=== PATIENT | female | born 1945 | race Caucasian/White ===

== ENCOUNTER 2018-03-01 08:23 | Outpatient (CLI) | payer OTHER, MEDICARE ==
[~2018-03-01] VITALS: Ht 162.6 cm; Wt 90.9 kg
--- NOTE | ~2018-03-01 | HEMODYNAMI ---
PATIENT:GAL ALVARADO MEDICAL RECORD: [id number] : 49 LOCATION:[facility] ADMISSION DATE: 03/01/18 Generatedon:03/01/201810:00 Patient name: GAL ALVARADO Patient #: [id number] SSN: DO B: 1945 Date of study: 03/01/2018 Page: Of Hemodynamic Procedure Report Patient Data Patient Demographics Procedure consent was obtained First Name: GAL Gender: Female Last Name: JENNY : 1945 Middle Initial: A Age: 72 year(s) Patient #: [id number] Race: Unknown Additional ID: [id number] Contact details Address: [address] [place] [address] ROAD State: [place] City: [place] Zip code: [address] Past Medical History Allergies: No known allergies Admission Admission Data Admission Date: 03/01/2018 Admission Time: 8:23 Admit Source: Other Procedure Procedure Types Cath Procedure Diagnostic Procedure LHC LHC w/Coronaries Procedure Description Procedure Date Procedure Date: 03/01/2018 Procedure Start Time: 9:51 Procedure End Time: 9:58 Procedure Staff Name Function Giovany Tariq MD Performing Physician Honorio Vincent RT Scrub Gio Montilla RN Nurse Maya Gambino RT Monitor Procedure Data Cath Procedure Fluoroscopy Diagnostic fluoroscopy Total fluoroscopy Time: 116 time: 116 min min Diagnostic fluoroscopy Total fluoroscopy dose: 1.2 dose: 1.2 mGy mGy Contrast Material Contrast Material Type Amount (ml) Isovue 300 40 Entry Location Entry Primary Successful Side Size Upsize Upsize Entry Closure Succes sful Closure Location (Fr) 1 (Fr) 2 (Fr) Remarks Device Remarks Radial Right 6 Fr Exoseal artery Short Estimated blood loss: 10 ml Diagnostic catheters Device Type Used For End Catheter Placement DIAGNOSTIC [place] 110cm 5 Procedure Fr catheter ([id number]) Procedure Complications No complications Procedure Medications Medication Administration Route Dosage Oxygen etCO2 Nasal cannula 2 l/min Heparin Flush Bag added to field 2 bags (1000units/500ml NS) 0.9% NaCl I.V. 100 ml/hr Radial Cocktail added to field 1 syringe (Verapomil 2mg/Nitro 400mcg/Heparin 1500units) Fentanyl I.V. 50 mcg Versed I.V. 1 mg Fentanyl I.V. 50 mcg Versed I.V. 1 mg Radial Cocktail I.A. 1 syringe (Verapomil 2mg/Nitro 400mcg/Heparin 1500units) Hemodynamics Rest Heart Rate: 54 (bpm) Pre Cath Intra NCS Post Cath Vital Signs Time Heart Resp SPO2 etCO2 NIBP (mmHg) Rhythm Pain Sedation Rate (ipm) (%) (mmHg) Status Level (bpm) 9:33:49 54 17 96 0 177/82(126) NSR 0 (11) 10(A) , No pain 9:39:12 58 17 97 36.8 179/80(106) NSR 0 (11) 10(A) , No pain 9:43:49 63 16 94 42.8 146/75(102) NSR 0 (11) 10(A) , No pain 9:48:15 61 16 93 41.3 143/75(101) NSR 0 (11) 10(A) , No pain 9:52:23 71 16 95 39.1 127/97(108) NSR 0 (11) 9(A) , No pain 9:56:39 69 16 96 34.5 126/65(89) NSR 0 (11) 9(A) , No pain Medications Time Medication Route Dose Verified Delivered Reason Notes Effectiveness by by 9:36:17 Oxygen etCO2 2 l/min Giovany Powers Per Nasal Chandni Montilla RN physician cannula 9:36:28 Heparin Flush added 2 bags Giovany Powers used for Bag to Chandni Montilla RN procedure (1000units/500ml field NS) 9:36:38 0.9% NaCl I.V. 100 Giovany Powers Per ml/hr Chandni Montilla RN physician 9:36:46 Radial Cocktail added 1 Giovany Powers used for (Verapomil to syringe Chandni Montilla RN procedure 2mg/Nitro field 400mcg/Heparin 1500units) 9:49:22 Fentanyl I.V. 50 mcg Giovany Powers for sedation Chandni Montilla RN 9:49:28 Versed I.V. 1 mg Giovany Powers for sedation Chandni Montilla RN 9:51:46 Fentanyl I.V. 50 mcg Giovany Powers for sedation Chandni Montilla RN 9:51:49 Versed I.V. 1 mg Giovany Powers for sedation Chandni Montilla RN 9:52:41 Radial Cocktail I.A. 1 Giovany Adiar for (Verapomil syringe Chandni Tariq MD vasodilation 2mg/Nitro 400mcg/Heparin 1500units) Procedure Log Time Note 9:02:16 Informed consent obtained and on chart 9:02:21 Admit Source: Other 9:02:53 Diagnostic Cath status Elective 9:02:54 Time tracking: Regular hours (M-F 7:00 - 5:00) 9:02:58 Plan of Care:Hemodynamics will remain stable., Cardiac rhythm will remain stable., Comfort level will be maintained., Respiratory function will remain adequate., Patient/ family verbilizes understanding of procedure., Procedure tolerated without complication., Recovers from procedure without complications.. 9:03:12 H&P Date Dictated: 02/07/2018 Within 30 days and on chart., H&P Addendum completed by physician on day of procedure. (MUST COMPLETE FOR ALL OUTPATIENTS). 9:10:29 Gio Montilla RN sent for patient. Start room use. 9:21:23 Patient received from Pre/Post Procedure Room to CCL 3 Alert and oriented. Tansferred to table in Supine position. 9:21:24 Warm blankets applied, and armani hugger turned on for patient comfort. 9:21:24 Correct patient and procedure confirmed by team. 9:21:25 ECG and BP/O2 sat monitors applied to patient. 9:21:26 Pre-procedure instructions explained to patient. 9:21:26 Pre-op teaching completed and patient verbalized understanding. 9:21:28 Family in waiting room. 9:27:02 Patient NPO since Midnight. 9:27:07 Patient allergic to No known allergies 9:27:11 Is the patient allergic to Iodine/contrast media? No. 9:28:34 Was the patient premedicated? Yes 9:28:43 Is patient on blood thinner?No 9:28:45 Patient diabetic? No. 9:28:53 Snore? Yes 9:28:54 Sleep apnea? No 9:28:58 Airway obstruction? No ? 9:29:05 Dentures? No out 9:29:09 Patient pain scale 0/10 ?. 9:29:20 IV patent on arrival in left forearm with 0.9% NaCl at [facility]. 9:31:31 Vital chart was started 9:36:17 Oxygen 2 l/min etCO2 Nasal cannula was administered by Gio Montilla RN; Per physician; 9:36:28 Heparin Flush Bag (1000units/500ml NS) 2 bags added to field was administered by Gio Montilla RN; used for procedure; 9:36:38 0.9% NaCl 100 ml/hr I.V. was administered by Gio Montilla RN; Per physician; 9:36:46 Radial Cocktail (Verapomil 2mg/Nitro 400mcg/Heparin 1500units) 1 syringe added to field was administered by Gio Montilla RN; used for procedure; 9:38:35 Lab results completed and on chart. 9:38:40 Right Radial & Right Groin area was prepped with chlora-prep and draped in sterile fashion 9:38:41 Alarms reviewed by R. N. 9:38:42 Sharps counted by scrub and verified by R.N. 9:45:34 Physician paged 9:45:35 Physician arrived 9:45:36 --------ALL STOP TIME OUT------ 9:45:36 Final Timeout: patient, procedure, and site verified with staff and physician. All members of the team are in agreement. 9:45:39 Right Radial & Right Groin site verified by team. 9:45:42 Physical assessment completed. ASA score P 2 - A patient with mild systemic disease as per Giovany Tariq MD. 9:45:47 Sedation plan: IV Moderate Sedation Medication:Versed, Fentanyl 9:49:22 Fentanyl 50 mcg I.V. was administered by Gio Montilla RN; for sedation; 9:49:28 Versed 1 mg I.V. was administered by Gio Montilla RN; for sedation; 9:49:53 Use device set Radial Dx or PCI 9:49:56 ACIST Syringe (87312) opened to sterile field. 9:49:56 Medline Cath Pack ([id number]) opened to sterile field. 9:49:57 Bag Decanter (2001S) opened to sterile field. 9:49:57 DIAGNOSTIC WIRE .035 260cm J wire (964422) opened to sterile field. 9:49:58 ACIST Hand Control (89983) opened to sterile field. 9:49:59 ACIST Manifold (90455) opened to sterile field. 9:50:00 Tegaderm 4 x 4 (1626W) opened to sterile field. 9:50:02 MBrace Wrist Support ([id number]) opened to sterile field. 9:50:03 NEEDLE Cook 21G 4cm Radial (O36179) opened to sterile field. 9:50:08 SHEATH 6Fr Prelude Radial ([id number]) opened to sterile field. 9:50:17 Procedure started. 9:50:17 Full Disclosure recording started 9:50:59 A DIAGNOSTIC [place] 110cm 5 Fr catheter (072594) was advanced over the wire and used for Procedure. 9:51:46 Fentanyl 50 mcg I.V. was administered by Gio Montilla RN; for sedation; 9:51:49 Versed 1 mg I.V. was administered by Gio Montilla RN; for sedation; 9:51:51 Local anesthetic to right radial artery with Lidocaine 2% by Giovany Tariq MD.INITIAL ACCESS ONLY 9:52:13 A 6 Fr Short sheath was inserted into the Right Radial artery 9:52:36 EF : 60 % 9:52:41 Radial Cocktail (Verapomil 2mg/Nitro 400mcg/Heparin 1500units) 1 syringe I.A. was administered by Giovany Tariq MD; for vasodilation; 9:52:48 RCA angiography performed. 9:53:06 Catheter removed. 9:54:01 GUIDE 6FR XBLAD 3.5 catheter ([id number]) opened to sterile field. 9:54:07 LCA angiography performed. 9:54:46 TR BAND Standard ([id number]) opened to sterile field. 9:54:51 Catheter removed. 9:55:08 Sheath removed intact; hemostasis achieved with Exoseal to the Right Radial artery. 9:55:11 Procedure ended.(Physican Out) 9:55:25 Fluoroscopy time 116.00 minutes. 9:55:55 Fluoroscopy dose: 1.2 mGy 9:55:55 Flurop Dose total: 1.2 9:56:16 Contrast amount:Isovue 300 40ml. 9:56:18 Sharps counted by scrub and verified by R.N. 9:56:26 TR band inflated with 10cc of air. 9:56:33 Insertion/operative site no bleeding no hematoma. 9:56:45 Post right radial artery:stable 9:56:48 Post Procedure Pulses reassessed and unchanged 9:57:01 Post-procedure physical assessment completed. ASA score P 2 - A patient with mild systemic disease as per iGovany Tariq MD. 9:57:05 Post procedure rhythm: unchanged. 9:57:08 Estimated blood loss: 10 ml 9:57:10 Post procedure instruction explained to patient.Patient verbalizes understanding. 9:57:26 Procedure and supply charges have been captured, reviewed, submitted and are correct. 9:57:53 Procedure Complication : No complications 9:57:55 Vital chart was stopped 9:57:56 See physician's report for complete and final results. 9:57:58 Report given to Pre/Post Procedure Room. 9:58:02 Patient transfered to Pre/Post Procedure Room with Stretcher. 9:58:04 Procedure ended. 9:58:04 Full Disclosure recording stopped 9:58:07 End room use (Document Last) Device Usage Item Name Manufacture Quantity Catalog Number Hospital Part Current M inimal Lot# / Charge Number Stock Stock Serial# Code ACIST Syringe Acist 1 45274 [id number] 150770 428095 2 0 (22204) [employer] Medline Cath Cardinal 1 [id number] 447042 09503 203459 5 [facility] ([id number]) Bag Decanter Microtek 1 276843 03446 951061 5 () [employer] Inc. DIAGNOSTIC WIRE [place] 1 236539 557783 969741 625468 3 0 .035 260cm J wire (374340) ACIST Hand Acist 1 45822 107692 945516 651665 5 Control (80546) [employer] ACIST Manifold Acist 1 57099 770599 603458 325530 5 (94064) [employer] Inc Tegaderm 4 x 4 3M 1 1626W 434300 824641 569893 5 (1626W) MBrace Wrist Advanced 1 140-0250-00 562347 69612 036053 5 Support Vascular ([id number]) Dynamics NEEDLE Cook 21G Cook Medical 1 [id number] 339260 978716 445752 5 4cm Radial (X60133) SHEATH 6Fr Merit 1 [id number] 299342 589680 229151 5 Prelude Radial Medical ([id number]) DIAGNOSTIC Terumo 1 11-0352 736120 075360 689733 5 [place] 110cm 5 Fr catheter (158936) GUIDE 6FR XBLAD Cardinal 1 [id number] 591262 939950 567388 1 0 3.5 catheter Health (49933406) TR BAND Terumo 1 [id number] 525185 202932 225804 4 0 Standard ([id number]) Signature Audit [place] Stage Time Signature Unsigned Intra-Procedure 03/01/2018 Maya Gambino 10:00:17 AM RT(R) Signatures Monitor : Maya Gambino Signature : RT Date : Time : [place] [id number] [facility] [address]
--- NOTE | ~2018-03-01 | OP ---
PATIENT NAME: GAL ALVARADO MEDICAL RECORD: [id number] :49 LOCATION:[facility] ADMISSION DATE: SURGEON: RUSLAN KAISER MD DATE OF OPERATION: 03/01/2018 PROCEDURES: 1. Left heart catheterization. 2. Selective coronary angiography. 3. Left ventriculogram. DESCRIPTION OF PROCEDURE: After informed consent was obtained and after detailed explanation of risks, benefits as well as alternative therapies, the patient elected proceeded with angiogram and angioplasty. The right radial area was prepped and draped in normal sterile fashion. Right radial artery was cannulated via modified Seldinger technique with placement of 6-[place] sheath. All catheters exchanged through this sheath. FINDINGS: The left ventriculogram was performed in standard 30-degree BOWERS view, reveals good cardiac wall motion throughout all segments. Overall ejection fraction estimated 60%. SELECTIVE CORONARY ANGIOGRAPHY: Left main, left anterior descending, left circumflex, and right coronary artery are all smooth-walled vessels with no angiographic evidence of coronary artery disease. OVERALL IMPRESSION: 1. No angiographic evidence of coronary artery disease. 2. Normal left heart pressures. 3. Normal left ventricular systolic function. Chest pain is noncardiac in etiology. No further cardiac workup needs to be ascertained. TRANSINT:[id number] Voice Confirmation ID: [id number] DOCUMENT ID: [id number] RUSLAN KAISER MD at 1752 CC: [id number] DICTATION DATE: 03/01/18 1002 RAPID TRANSIT OPERATOR: 03/01/18 1134 DEP CLI 03/01/18 [place] [id number] [place] [address]
[2018-03-01] MEDS ORDERED: ZOLOFT100 MG PO (08:42)
[2018-03-01] MEDS ORDERED: ULTRAM50 MG PO (08:43)
[2018-03-01] MEDS ORDERED: TEMAZEPAM30 MG PO (08:43)
[2018-03-01] MEDS ORDERED: TRAZODONE HCL150 MG PO (08:44)
[2018-03-01 08:50] VITALS: BP 150/64; Ht 162.6 cm; Wt 90.9 kg
[2018-03-01 09:11] LABS: BASOPHILS 0.4 % (0-2); EOSINOPHILS 1.5 % (0-7); HEMATOCRIT 43.8 % (36.0-48.0); HEMOGLOBIN 14.1 g/dL (12-16); IMMATURE GRANULOCYTES 0.4 % (0-5); LYMPHOCYTES 27.5 % (15-50); MCH 26.9 pg (26.0-34.0); MCHC 32.2 g/dL (31.0-37.0); MCV 83.4 fL (80.0-100.0); MEAN PLATELET VOLUME 12.6 fL (7.4-10.4); MONOCYTES 9.2 % (2-11); PLATELET COUNT 200 10x3/uL (130-400); RBC 5.25 10x6/uL (4.00-5.40); RDW 16.1 % (11.5-14.5); WBC 7.5 10x3/uL (4.8-10.8)
[2018-03-01 09:28] LABS: CALC OSMOLALITY 282 mosm/kg (275-300); CALCIUM 8.9 mg/dL (8.5-10.1); CARBON DIOXIDE 26.6 mmol/L (21.0-32.0); CHLORIDE - SERUM 105 mmol/L (98-107); CREATININE - SERUM 0.8 mg/dL (0.6-1.3); GLUCOSE 106 mg/dL (74-106); SODIUM 142 mmol/L (136-145); UREA NITROGEN 13 mg/dL (7-18); eGFR NON AFRICAN AMERICAN 75 mL/min (90-120)
== END 2018-03-01 13:00 | disposition home or self-care (01) ==
LOC: D.CATH 08:23
PROVIDERS: Internal Medicine Interventional Cardiology
DX: R07.89 Other chest pain (principal); Z01.812 Encounter for preprocedural laboratory examination